=== PATIENT | female | born 1975 | race Caucasian/White ===

== ENCOUNTER 2020-01-14 15:29 | Emergency (ER) | payer OTHER ==
[~2020-01-14] VITALS: Ht 160 cm; Wt 90.7 kg
[2020-01-14 16:18] LABS: URINE BILIRUBIN NEGATIVE (Negative); URINE BLOOD NEGATIVE (Negative); URINE CLARITY CLEAR; URINE COLOR YELLOW; URINE GLUCOSE-RANDOM* NEGATIVE (Negative); URINE KETONES NEGATIVE (Negative); URINE LEUKOCYTES-REFLEX TRACE (Negative); URINE NITRITE-REFLEX POSITIVE (Negative); URINE PROTEIN (DIPSTICK) NEGATIVE (Negative); URINE SPECIFIC GRAVITY 1.025 (1.005-1.035); URINE UROBILINOGEN 0.2 E.U./dl (0.2-1.0)
[2020-01-14 16:27] LABS: CASTS None Seen /LPF (None Seen); MUCUS 4-6 Moderate strn/LPF (None Seen); SQUAMOUS 4-10 Moderate /LPF (0-3)
[2020-01-14 16:28] LABS: BACTERIA-REFLEX >30 Many /HPF (None Seen); CRYSTALS None Seen /LPF (None Seen); URINE RBC None Seen /HPF (0-2); URINE WBC-REFLEX 6-15 Few /HPF (0-5); WBC CLUMPS Occasional (None Seen)
[2020-01-14 16:35] LABS: AMP/METHAMP POSITIVE (Negative); BARBITURATES Negative (Negative); BENZODIAZEPINES Negative (Negative); COCAINE Negative (Negative); METHADONE Negative (Negative); OPIATES Negative (Negative); PCP Negative (Negative)
[2020-01-14 16:46] LABS: ABSOLUTE NEUTROPHILS 3.8 thou/uL (1.4-8.2); BASOPHILS 1.1 % (0.0-2.0); EOSINOPHILS 2.3 % (0.0-3.0); HEMATOCRIT 41.8 % (37.0-47.0); HEMOGLOBIN 13.9 gm/dL (12.0-15.0); LYMPHOCYTES 30.2 % (24.0-44.0); MCH 28.3 pg (26.0-34.0); MCHC 33.2 g/dL (28.0-37.0); MCV 85.1 fL (80.0-100.0); MONOCYTES 5.4 % (1.0-8.0); PLATELET COUNT 292 thou/uL (150-400); RBC 4.91 mil/uL (4.20-5.00); RDW 13.8 % (10.5-14.5); WBC 6.2 thou/uL (4.0-11.0)
[2020-01-14 16:56] LABS: CALCIUM 8.8 mg/dL (8.5-10.1); CREATININE 0.9 mg/dL (0.6-1.0); POTASSIUM 3.7 mmol/L (3.5-5.1)
[2020-01-14 17:08] LABS: ALBUMIN 3.5 g/dL (3.4-5.0); SALICYLATE 3.2 mg/dL (2.8-20.0); TOTAL BILIRUBIN 0.2 mg/dL (0.2-1.0); TOTAL PROTEIN 7.3 g/dL (6.4-8.2)
[2020-01-14] MEDS ORDERED: PROZAC20 MG PO (21:15)
[2020-01-14] MEDS ORDERED: MACROBID 100 M100 MG PO (21:15)
[2020-01-14 23:02] VITALS: BP 132/88
--- NOTE | 2020-01-15 07:54 | EKG ---
Formerly [facility] [place] [address] ELECTROCARDIOGRAM REPORT Name: CHAPIS LOZADA Room #: DEP [facility]#: [id number] Admission: 01/14/20 Attend Phys: Discharge: 01/14/20 Date of : 71 Report #: [id number] THIS REPORT FOR: cc: TRAMAINE - [place] family physician/PCP TRAMAINE - [place] family physician/PCP Shekhar Mcnulty MD [facility] THIS REPORT FOR: //name// Formerly [facility] ED Test Date: 2020-01-14 Test Time: 16:01:45 Pat Name: CHAPIS LOZADA Department: Room: Gender: F [employer] Operator: : 1975 Requested By: Carrie Stewart Order Number: [id number] MD: Shekhar Mcnulty Measurements Intervals Calvin Rate: 72 P: 50 MA: 192 QRS: -19 QRSD: 113 T: 28 QT: 429 QTc: 470 Interpretive Statements Sinus rhythm Probable left atrial enlargement Right ventricular conduction delay No previous ECG available for comparison Electronically Signed On 01-15-2020 7:54:17 CDT by Shekhar Mcnulty [email or web address] <ELECTRONICALLY SIGNED> By: Shekhar Mcnulty MD, [facility] 01/15/20 [id number] [id number] 160 Shekhar Mcnulty MD, [facility] /EPI
== END 2020-01-14 23:03 | disposition home or self-care (01) ==
LOC: ER 15:29
PROVIDERS: Physician Assistant
DX: F32.9 Major depressive disorder, single episode, unspecified (principal); N39.0 Urinary tract infection, site not specified; R45.851 Suicidal ideations; E03.9 Hypothyroidism, unspecified; I10 Essential (primary) hypertension; K21.9 Gastro-esophageal reflux disease without esophagitis; F17.210 Nicotine dependence, cigarettes, uncomplicated; Z98.890 Other specified postprocedural states; Z98.51 Tubal ligation status; Z88.6 Allergy status to analgesic agent; Z88.0 Allergy status to penicillin